=== PATIENT | female | born 2000 | race Caucasian/White ===

== ENCOUNTER 2022-06-10 03:31 | Emergency (ER) | payer OTHER ==
[~2022-06-10] VITALS: Ht 162.5 cm; Wt 87.5 kg
[2022-06-10] MEDS ORDERED: IRON325 M1 PO (03:50)
[2022-06-10] MEDS ORDERED: STOOL SOFTENER240 M2 PO (03:51)
== END 2022-06-10 04:36 | disposition home or self-care (01) ==
LOC: ED 03:31
DX: F41.9 Anxiety disorder, unspecified (principal); Z79.899 Other long term (current) drug therapy; Z88.8 Allergy status to other drugs, medicaments and biological substances

== ENCOUNTER 2025-06-13 09:48 | Emergency (ER) | payer MEDICAID ==
[~2025-06-13] VITALS: Wt 95.3 kg
[~2025-06-13 09:48] MED LIST: IRON325 M1 PO; STOOL SOFTENER240 M2 PO
[2025-06-13] MEDS ORDERED: LURASIDONE HCL40 MG PO (10:10)
[2025-06-13] MEDS ORDERED: SERTRALINE HYD100 MG PO (10:11)
[2025-06-13 10:19] LABS: BASO # 0.1 10*3/uL (0.0-0.1); BASO % 0.6 % (0.0-1.0); EOS # 0.3 10*3/uL (0.0-0.4); EOS % 3.0 % (1.0-4.0); MEAN CELL VOLUME 84.5 fl (81.0-99.0); MEAN CORPUSCULAR HGB 26.9 pg (27.0-31.0); MEAN PLATELET VOLUME 8.9 fl (9.6-12.3); MONO # 0.6 10*3/uL (0.1-1.0); MONO % 6.3 % (3.0-9.0); NEUT # 5.3 10*3/uL (2.3-7.9); NEUT % 59.2 % (47.0-73.0); NUCLEATED RED BLOOD CELL 0.0 % (0.0-0.0); NUCLEATED RED BLOOD CELL 0.0 10*3/uL (0.0-0.0); PLATELET COUNT AUTOMATED 304 10*3/uL (130-400); RED CELL DISTRI WIDTH 13.4 % (0-14.5)
[2025-06-13 10:33] LABS: BILIRUBIN Negative (Negative); BLOOD Trace-Lysed (Negative); CLARITY Cloudy (Clear); COLOR Yellow (Yellow); KETONE Negative (Negative); LEUKO ESTERASE 3+ (Negative); NITRITE Negative (Negative); PH 6.0 (4.5-8.0); SPECIFIC GRAVITY 1.015 (1.001-1.030); UROBILINOGEN 0.2 E.U./dl (0.0-1.0)
[2025-06-13 10:40] LABS: BUN 12 mg/dl (9-23)
[2025-06-13 10:44] LABS: BACTERIA 2+; MUCOUS 1+; WBC TNTC wbc/hpf (0-5)
[2025-06-13] MEDS ORDERED: SEPTDS PO (13:00)
[2025-06-14 21:06] LABS: ATOPOBIUM VAGINAE Low - 0 Score (.)
[2025-06-15 06:07] LABS: GONOCOCCUS BY NAA Negative (Negative)
== END 2025-06-13 13:02 | disposition home or self-care (01) ==
LOC: ED 09:48
PROVIDERS: Emergency Medicine
DX: N39.0 Urinary tract infection, site not specified (principal); F41.9 Anxiety disorder, unspecified; F31.9 Bipolar disorder, unspecified; Z88.8 Allergy status to other drugs, medicaments and biological substances